=== PATIENT | female | born 1940 | race Caucasian/White ===

== ENCOUNTER 2021-10-14 23:56 | Observation (INO) | payer MEDICARE, BC ==
[2021-10-15 00:04] VITALS: RESP 18; TEMP 98.1
[2021-10-15] MEDS ORDERED: SODIUM CHLORIDE 0.9% 500 ML 500 ML IV STA (00:09)
--- NOTE | 2021-10-15 00:25 | ED ---
General Adult HPI - General Chief complaint: Syncope Stated complaint: Syncope Time Seen by Provider: 10/15/21 00:01 Source: patient, family, RN notes reviewed Mode of arrival: EMS - History of Present Illness Initial comments: This is a pleasant 81-year-old female presents to the emergency department via EMS after having a syncopal episode while playing bingo. Patient states the last thing she remembers is standing up and then next thing she knew she was surrounded by EMS personnel. This was a witnessed fall. Patient did strike the right side of her head and had some bleeding from her ear. Patient is denying any significant pain other than some mild soreness in this area. No vision or hearing disturbance. No neck pain. No back pain. No arm or leg pain. She has not been ambulatory since this injury. Patient is not on anticoagulation therapy. There was no witnessed seizure activity. Patient here with her family member who states that she seemed to come to fairly quickly. Patient became postural tone on her own. There was no other preceding symptomology consistent with presyncopal symptoms. No chest pain. No shortness of breath. No abdominal pain. Patient is a diabetic and had no symptom mild tachycardia consistent with hypoglycemia. States that she has not been ill. No fever. No numbness or tingling. No problems with urination or bowel movement. No nausea or vomiting. There is no focal weakness. No difficulty with speech. No vision complaints. - Related Data Allergies Allergy/AdvReac Type Severity Reaction Status Date / Time No Known Allergies Allergy Verified 10/15/21 00:33 Review of Systems ROS Statement: Those systems with pertinent positive or pertinent negative responses have been documented in the HPI. ROS Other: All systems not noted in ROS Statement are negative. Past Medical History Past Medical History: Diabetes Mellitus, Hypertension Additional Past Medical History / Comment(s): trouble swallowing History of Any Multi-Drug Resistant Organisms: None Reported Past Surgical History: Hysterectomy, Orthopedic Surgery Additional Past Surgical History / Comment(s): esophogas stretched Past Psychological History: No Psychological Hx Reported Smoking Status: Never smoker Past Alcohol Use History: None Reported Past Drug Use History: None Reported General Exam - General Exam Comments Initial Comments: Nontoxic-appearing elderly female in no acute distress. Cranial nerves II through XII are grossly intact. Vital signs reviewed. Patient was found to be hypertensive at 180/82. Pulse oximetry is 94% on room air. Patient no respiratory distress. Remainder of the vital signs were normal. General appearance: alert, in no apparent distress Head exam: Present: atraumatic, normocephalic, normal inspection Eye exam: Present: normal appearance, PERRL, EOMI. Absent: scleral icterus, conjunctival injection, periorbital swelling ENT exam: Present: normal exam, normal oropharynx, mucous membranes moist, other (Superficial laceration to the helix of the right ear. Does not appear to i nvolve the cartilaginous tissues.). Absent: mucous membranes dry Neck exam: Present: normal inspection, full ROM. Absent: tenderness, meningismus, lymphadenopathy Respiratory exam: Present: normal lung sounds bilaterally. Absent: respiratory distress, wheezes, rales, rhonchi, stridor, chest wall tenderness, accessory muscle use, decreased breath sounds, prolonged expiratory Cardiovascular Exam: Present: regular rate, normal rhythm, normal heart sounds. Absent: systolic murmur, diastolic murmur, rubs, gallop, clicks GI/Abdominal exam: Present: soft, normal bowel sounds. Absent: distended, tenderness, guarding, rebound, rigid Extremities exam: Present: normal inspection, full ROM, normal capillary refill. Absent: tenderness, pedal edema, joint swelling, calf tenderness Back exam: Present: normal inspection, full ROM. Absent: tenderness, CVA tenderness (R), CVA tenderness (L), paraspinal tenderness, vertebral tenderness, rash noted Neurological exam: Present: alert, oriented X3, CN II-XII intact Expanded Patient oriented to: Present: person, place, time Speech: Present: fluid speech Cranial nerves: EOM's Intact: Normal, Gag Reflex: Normal, Tongue Deviation: Normal, Nystagmus: Normal, Facial Sensation: Normal, Facial Palsy with Forehead Movement: Normal, Facial Palsy without Forehead Movement: Normal Cerebellar function: Finger to Nose: Normal, Heel to Sanders: Normal Upper motor neuron: Blayne Neglect: Normal, Pronator Drift: Normal, Sensory Extinction: Normal Motor strength exam: RUE: 5, LUE: 5, RLE: 5, LLE: 5 Eye Response: (4) open spontaneously Motor Response: (6) obeys commands Verbal Response: (5) oriented [place] Total: 15 Psychiatric exam: Present: normal affect, normal mood Skin exam: Present: warm, dry, intact, normal color. Absent: rash Course Vital Signs 10/14/21 10/15/21 10/15/21 23:58 02:49 02:50 Temperature 98.1 F Pulse Rate 76 78 Respiratory 18 18 18 Rate Blood Pressure 180/82 152/78 O2 Sat by Pulse 94 L 98 96 Oximetry - Reevaluation(s) Reevaluation #1: 10/15/21 01:34 Medical record is reviewed Patient remains asymptomatic. Cranial nerves II through XII are intact. Patient is alert and oriented 4. Laceration repaired. Patient is informed of results and questions answered Patient in no distress - Consultations Consultation #1: Case discussed in detail with the hospitalist physician, Dr. Roberts who excepts admission of the patient. EKG Findings - EKG Comments: EKG Findings:: EKG done at 12:11 AM and read by the ED attending physician reveals sinus rhythm with a first-degree AV block, right bundle branch block, PA interval 266 ms, QRS duration 162 ms, QTC 465 ms. Left anterior fascicular block with left axis deviation. No evidence of acute changes. No comparison study. Procedures - Laceration Laceration #1 Site: other (Right ear/helix) Size (cm): 2 Description: linear Depth: simple, single layer Pre-repair: wound explored, irrigated extensively, deep structures intact Type of Sutures: other (Tissue adhesive) Technique: simple, interrupted Patient Tolerated Procedure: well, no complications Medical Decision Making - Medical Decision Making Patient presents after having a syncopal episode. She stood up at bingo and then passed out. Patient was only out a few seconds, was able to regain postural tone on her own. There were no preceding symptoms. Patient has no focal neurologic symptoms this time. Essentially, the patient is asymptomatic at this point. Differential includes vasovagal versus cardiogenic. [place] syncope score is 2 which was indicative of a 5.1 mortality risk over the next 30 days. We will advise admission. The case was discussed in detail with ED attending physician. Presentation, findings, treatment plan discussed in detail. Front End [employer]er Operator Dr. Saha - Lab Data Result diagrams: 10/15/21 00:13 10/15/21 00:13 Lab Results 10/15/21 10/15/21 10/15/21 Range/Units 00:13 00:13 00:13 WBC 12.2 H (3.8-10.6) k/uL RBC 4.08 (3.80-5.40) m/uL Hgb 12.3 (11.4-16.0) gm/dL Hct 37.3 (34.0-46.0) % MCV 91.3 (80.0-100.0) fL MCH 30.0 (25.0-35.0) pg MCHC 32.9 (31.0-37.0) g/dL RDW 14.5 (11.5-15.5) % Plt Count 284 (150-450) k/uL MPV 7.3 Neutrophils % 69 % Lymphocytes % 20 % Monocytes % 5 % Eosinophils % 4 % Basophils % 1 % Neutrophils # 8.4 H (1.3-7.7) k/uL Lymphocytes # 2.5 (1.0-4.8) k/uL Monocytes # 0.6 (0-1.0) k/uL Eosinophils # 0.5 (0-0.7) k/uL Basophils # 0.1 (0-0.2) k/uL Sodium 139 (137-145) mmol/L Potassium 3.9 (3.5-5.1) mmol/L Chloride 105 (98-107) mmol/L Carbon Dioxide 24 (22-30) mmol/L Anion Gap 10 mmol/L BUN 25 H (7-17) mg/dL Creatinine 1.14 H (0.52-1.04) mg/dL Est GFR (CKD-EPI)AfAm 52 (>60 ml/min/1.73 sqM) Est GFR (CKD-EPI)NonAf 45 (>60 ml/min/1.73 sqM) Glucose 89 (74-99) mg/dL POC Glucose (mg/dL) (70-110) mg/dL POC Glu Carbide Grinder ID Calcium 9.1 (8.4-10.2) mg/dL Magnesium 2.0 (1.6-2.3) mg/dL Total Bilirubin 0.5 (0.2-1.3) mg/dL AST 21 (14-36) U/L ALT 14 (4-34) U/L Alkaline Phosphatase 107 (38-126) U/L Troponin I <0.012 (0.000-0.034) ng/mL NT-Pro-B Natriuret Pep pg/mL Total Protein 7.7 (6.3-8.2) g/dL Albumin 4.5 (3.5-5.0) g/dL 10/15/21 10/15/21 Range/Units 00:13 00:51 WBC (3.8-10.6) k/uL RBC (3.80-5.40) m/uL Hgb (11.4-16.0) gm/dL Hct (34.0-46.0) % MCV (80.0-100.0) fL MCH (25.0-35.0) pg MCHC (31.0-37.0) g/dL RDW (11.5-15.5) % Plt Count (150-450) k/uL MPV Neutrophils % % Lymphocytes % % Monocytes % % Eosinophils % % Basophils % % Neutrophils # (1.3-7.7) k/uL Lymphocytes # (1.0-4.8) k/uL Monocytes # (0-1.0) k/uL Eosinophils # (0-0.7) k/uL Basophils # (0-0.2) k/uL Sodium (137-145) mmol/L Potassium (3.5-5.1) mmol/L Chloride (98-107) mmol/L Carbon Dioxide (22-30) mmol/L Anion Gap mmol/L BUN (7-17) mg/dL Creatinine (0.52-1.04) mg/dL Est GFR (CKD-EPI)AfAm (>60 ml/min/1.73 sqM) Est GFR (CKD-EPI)NonAf (>60 ml/min/1.73 sqM) Glucose (74-99) mg/dL POC Glucose (mg/dL) 101 (70-110) mg/dL POC Glu Carbide Grinder ID Kamran Mijares Calcium (8.4-10.2) mg/dL Magnesium (1.6-2.3) mg/dL Total Bilirubin (0.2-1.3) mg/dL AST (14-36) U/L ALT (4-34) U/L Alkaline Phosphatase (38-126) U/L Troponin I (0.000-0.034) ng/mL NT-Pro-B Natriuret Pep 167 pg/mL Total Protein (6.3-8.2) g/dL Albumin (3.5-5.0) g/dL Disposition Clinical Impression: Syncope and collapse, Closed head injury, Laceration of right ear, Hypertension, poor control Disposition: ADMITTED IP TO THIS [facility] Condition: Stable Is patient prescribed a controlled substance at d/c from ED?: No Referrals: Nonstaff,Physician [Primary Care Provider] - 1-2 days Time of Disposition: 02:05 Decision to Admit Reason: Admit from EC Decision Time: 02:05
[2021-10-15] MEDS ORDERED: TOPICAL SKIN ADHESIVE 1 EACH AMP TOPICAL ONE (00:31)
[2021-10-15] MEDS ORDERED: DIPH,PERTUS(ACELL)TETVAC-LF 0.5 ML VIAL IM ONE (00:31)
[2021-10-15 00:50] LABS: Basophils # (A) 0.1 k/uL (0-0.2); Basophils % (A) 1 %; Eosinophils # (A) 0.5 k/uL (0-0.7); Eosinophils % (A) 4 %; HCT 37.3 % (34.0-46.0); HGB 12.3 gm/dL (11.4-16.0); Lymphocytes # (A) 2.5 k/uL (1.0-4.8); Lymphocytes % (A) 20 %; MCHC 32.9 g/dL (31.0-37.0); MCV 91.3 fL (80.0-100.0); Mean Platelet Volume 7.3; Monocytes # (A) 0.6 k/uL (0-1.0); Monocytes % (A) 5 %; Neutrophils # (A) 8.4 k/uL (1.3-7.7); Neutrophils % (A) 69 %; Platelet Count 284 k/uL (150-450); RBC 4.08 m/uL (3.80-5.40); RDW 14.5 % (11.5-15.5); WBC 12.2 k/uL (3.8-10.6)
[2021-10-15 00:53] LABS: Glucose,Whole Blood 101 mg/dL (70-110)
[2021-10-15 00:58] LABS: Albumin 4.5 g/dL (3.5-5.0); Calcium 9.1 mg/dL (8.4-10.2); Potassium 3.9 mmol/L (3.5-5.1); Total Bilirubin 0.5 mg/dL (0.2-1.3); Total Protein 7.7 g/dL (6.3-8.2)
--- NOTE | 2021-10-15 02:20 | CT ---
EXAM: CT Head Without Intravenous Contrast CLINICAL HISTORY: ITS.REASON CT Reason: Syncope, fall/head injury TECHNIQUE: Axial computed tomography images of the head/brain without intravenous contrast. CTDI is 29.4 mGy and DLP is 666.55 mGy-cm. This CT exam was performed using one or more of the following dose reduction techniques: automated exposure control, adjustment of the mA and/or kV according to patient size, and/or use of iterative reconstruction technique. COMPARISON: No previous studies. FINDINGS: Brain: No abnormal extra-axial collection is noted. No hemorrhage. No significant white matter disease. Midline shift: Midline anatomy is unremarkable. Ventricles: Unremarkable. No ventriculomegaly. Bones/joints: Calvarium is unremarkable. No acute fracture. Soft tissues: Unremarkable. Sinuses: Severe chronic ethmoid and right sphenoid sinusitis. Mild chronic left sphenoid and mild to moderate chronic frontal sinusitis. Mastoid air cells: Mastoid air cells are well pneumatized. IMPRESSION: 1. Age-related changes. 2. No acute intracranial pathology. 3. If there is concern for etiology such as early acute lacunar infarcts, MRI imaging of the brain with diffusion-weighted sequences should be performed. 4. Chronic sinusitis. EXAM: CT Cervical Spine Without Intravenous Contrast CLINICAL HISTORY: ITS.REASON CT Reason: Syncope, fall/head injury TECHNIQUE: Axial computed tomography images of the cervical spine without intravenous contrast. CTDI is 29.4 mGy and DLP is 666.55 mGy-cm. This CT exam was performed using one or more of the following dose reduction techniques: automated exposure control, adjustment of the mA and/or kV according to patient size, and/or use of iterative reconstruction technique. COMPARISON: No previous studies. FINDINGS: Vertebrae: There is straightening and reversal of the curvature of the cervical spine suggestive of muscle spasm. Dextroscoliosis of the cervical spine. There is a normal relationship of C1 and C2. No acute fracture. Discs/spinal canal/neural foramina: Moderate to severe degenerative disc disease of the cervical spine is noted. Transaxial images of the cervical spine reveals posterior facet hypertrophy and multilevel disc osteophyte complexes. No spinal canal stenosis. Soft tissues: Paraspinal and regional soft tissues are within normal limits. Lung apices: Lung apices are unremarkable. IMPRESSION: 1. Straightening and reversal of the curvature of the cervical spine suggestive of muscle spasm. 2. No acute injury to the cervical spine is noted.
--- NOTE | 2021-10-15 02:21 | XR ---
EXAM: XR Chest, 1 View CLINICAL HISTORY: ITS.REASON XR Reason: syncope TECHNIQUE: Frontal view of the chest. COMPARISON: No previous studies. FINDINGS: Lungs: Mild prominence of central pulmonary vasculature. Pleural space: No pleural effusions. No pneumothorax. Heart: There is cardiomegaly. Mediastinum: Unremarkable. Bones/joints: Osteopenia. Other findings: Patient is rotated right of midline. IMPRESSION: 1. Cardiomegaly per 2. Mild prominence of central pulmonary vasculature. 3. Clinical correlation is advised to assess for incipient congestive heart failure.
[2021-10-15] MEDS ORDERED: NALOXONE 0.4 MG/ML 1 ML VIAL IV PRN (02:54)
[2021-10-15] MEDS ORDERED: ACETAMINOPHEN TAB 325 MG TAB PO PRN (02:54)
[2021-10-15] MEDS ORDERED: SODIUM CHLORIDE 0.9% 1,000 ML IV SCH (03:00)
--- NOTE | 2021-10-15 04:33 | P.HPIM ---
History of Present Illness H&P Date: 10/15/21 Chief Complaint: Syncope 81-year-old female with diabetes mellitus Patient was at her baseline status of health today while playing [employer] toward the end of the game after she got up she suddenly fell to the ground and hit her head it was witnessed she was out for less than a minute no associated jerky movements or seizure-like activity no loss of bladder or bowel control then she regained her consciousness as what foggy. She herself doesn't remember anything for about 20 minutes after the fall patient doesn't recall any falls in the past She denies any fevers chills coughing shortness of breath chest pain abdominal pain nausea vomiting or changes in her bowel or urinary habits. She denies any recent travel or hospital stay, she denies any history of blood clots In the ED workup showed stable vital signs blood work showed slightly elevated creatinine, CT of the head showed no acute pathology Review of Systems Pertinent positives as noted in HPI. All other systems were reviewed and are negative Past Medical History Past Medical History: Diabetes Mellitus, Hypertension Additional Past Medical History / Comment(s): trouble swallowing History of Any Multi-Drug Resistant Organisms: None Reported Past Surgical History: Hysterectomy, Orthopedic Surgery Additional Past Surgical History / Comment(s): esophogas stretched Past Psychological History: No Psychological Hx Reported Smoking Status: Never smoker Past Alcohol Use History: None Reported Past Drug Use History: None Reported - Past Family History family Family Medical History: No Reported History Medications and Allergies Allergies Allergy/AdvReac Type Severity Reaction Status Date / Time No Known Allergies Allergy Verified 10/15/21 00:33 Physical Exam Vitals: Vital Signs Temp Pulse Resp BP Pulse Ox 10/15/21 03:27 76 18 152/98 98 10/15/21 02:50 78 18 152/78 96 10/15/21 02:49 18 98 10/14/21 23:58 98.1 F 76 18 180/82 94 L Intake and Output 10/14/21 10/14/21 10/15/21 14:59 22:59 06:59 Other: Weight 100.698 kg Constitutional: No acute distress, conversant, pleasant Eyes: Anicteric sclerae, moist conjunctiva, Pupils equal round reactive to light ENMT: NC , small laceration over the right ear Oropharynx clear, no erythema, or exudates Neck: Supple, FROM, no masses, or JVD No carotid bruits No thyromegaly Lungs: Clear to auscultation Clear to percussion Normal respiratory effort, no accessory muscle use Cardiovascular: Heart regular in rate and rhythm, No murmurs, gallops, or rubs No peripheral edema Abdominal: Soft Nontender, no guarding, rebound or rigidity Abdomen moving with respiration Normoactive bowel sounds No hepatomegaly, No splenomegaly No palpable mass No abdominal wall hernia noted Skin: Normal temperature, tone, texture, turgor No induration No subcutaneous nodules No rash, lesions No ulcers Extremities: There is palpable swelling over the right hip slightly tender to deep palpation No digital cyanosis No clubbing Pedal pulses intact and symmetrical Radial pulses intact and symmetrical No calf tenderness Psychiatric: Alert and oriented to person, place and time Appropriate affect fair judgement Neuro Muscles Strength 4/5 in all 4 extremities Sensation to light touch grossly present throughout Cranial nerves II-XII grossly intact No focal sensory deficits Lymphatics: no palpable cervical or supraclavicular , or inguinal lymph nodes Results CBC & Chem 7: 10/15/21 00:13 10/15/21 00:13 Labs: Abnormal Lab Results - Last 24 Hours (Table) 10/15/21 10/15/21 Range/Units 00:13 00:13 WBC 12.2 H (3.8-10.6) k/uL Neutrophils # 8.4 H (1.3-7.7) k/uL BUN 25 H (7-17) mg/dL Creatinine 1.14 H (0.52-1.04) mg/dL Assessment and Plan Assessment: Syncopal episodes with falling Hematoma over the right hip Laceration over the right ear Plan Pain control Await right hip x-ray to rule out any fractures CT of the head no acute pathology Blood work overall unremarkable slightly elevated creatinine EKG showed right bundle branch block no old EKG to compare Fall precautions Monitor vital signs Monitor hemoglobin Cardiology consult Cardiac monitoring Chronic conditions Hypertension diabetes mellitus Resume home medications Insulin sliding scale DVT prophylaxis mechanical due to hematoma over the hip Full code Anticipated length of stay less than 2 midnights
--- NOTE | 2021-10-15 06:01 | XR ---
EXAMINATION TYPE: XR Hip RT and AP Pelvis DATE OF EXAM: 10/15/2021 COMPARISON: NONE HISTORY: Pelvic and right hip pain. Recent fall injury. TECHNIQUE: A single AP view of the pelvis is obtained. Two views of the right hip are obtained. FINDINGS: There is no acute fracture/dislocation evident in the pelvis. Moderate to severe axial jaylen nt space loss in both hips right slightly more prominent than left. Sacroiliac joints symmetric and thought within normal limits. Pubic symphysis is intact. The overlying soft tissue appears unremarkab le. Two views of right hip show no acute fracture or dislocation. No focal lytic or sclerotic lesion see n in the proximal right femur. The overlying soft tissue is unremarkable. IMPRESSION: There is no acute fracture or dislocation in the pelvis or right hip.
[2021-10-15] MEDS ORDERED: INSULIN ASPART (NovoLOG) 100 UNIT/ML VIAL SQ SCH (07:30)
[2021-10-15 08:42] LABS: HCT 33.6 % (37.2-46.3); HGB 10.8 g/dL (12.0-15.0); MCHC 32.1 g/dL (32.0-37.0); MCV 90.1 fL (80.0-97.0); Mean Platelet Volume 9.5 fL (9.5-12.2); NRBC Per 100 WBC 0 /100 WBCS (0.0-0.0); Platelet Count 237 X 10*3/uL (140-440); RBC 3.73 X 10*6/uL (4.10-5.20); RDW 13.8 % (11.5-14.5); WBC 13.49 X 10*3/uL (4.50-10.00)
[2021-10-15 08:55] VITALS: BP 128/78; PULSE 89
--- NOTE | 2021-10-17 21:33 | P.DS ---
Providers Date of admission: 10/15/21 03:15 Attending physician: Georgia Danielson MD Consults: 10/15/21 04:25 Consult Physician Routine Consulting Provider: Robert Parker Consult Reason/Comments: syncope Do you want consulting provider notified?: Yes, Notify in am Primary care physician: Physician Nonstaff Hospital Course: patient left against medical advice. 81-year-old female with diabetes mellitus Patient was at her baseline status of health today while playing [employer] toward the end of the game after she got up she suddenly fell to the ground and hit her head it was witnessed she was out for less than a minute no associated jerky movements or seizure-like activity no loss of bladder or bowel control then she regained her consciousness as what foggy. She herself doesn't remember anything for about 20 minutes after the fall patient doesn't recall any falls in the past She denies any fevers chills coughing shortness of breath chest pain abdominal pain nausea vomiting or changes in her bowel or urinary habits. She denies any recent travel or hospital stay, she denies any history of blood clots In the ED workup showed stable vital signs blood work showed slightly elevated creatinine, CT of the head showed no acute pathology admitted for cardiology evaluation and monitoring however, she left against medical advice Patient Condition at Discharge: Undetermined Plan - Discharge Summary Follow up Appointment(s)/Referral(s): Nonstaff,Physician [Primary Care Provider] - 1-2 days Discharge Disposition: Left Against Medical Advice
== END 2021-10-15 08:40 | disposition left against medical advice (07) ==
LOC: EC 23:56 → 6NMEDSUR 10-15 03:15
PROVIDERS: ADMIT Internal Medicine; ATTEND Internal Medicine
DX: R55 Syncope and collapse (principal); S01.311A Laceration without foreign body of right ear, initial encounter; S70.01XA Contusion of right hip, initial encounter; Z53.29 Procedure and treatment not carried out because of patient's decision for other reasons; S09.90XA Unspecified injury of head, initial encounter; E11.9 Type 2 diabetes mellitus without complications; R79.89 Other specified abnormal findings of blood chemistry; I45.10 Unspecified right bundle-branch block; I44.0 Atrioventricular block, first degree; I10 Essential (primary) hypertension; R13.10 Dysphagia, unspecified; W19.XXXA Unspecified fall, initial encounter; Z90.710 Acquired absence of both cervix and uterus
CPT/HCPCS: 90471; 99285; 36415; 93005; 83880; 80053; 83735; 84484; 85025; 85027; 73502; 71045; 72125; 70450; 90715; G0378